=== PATIENT | female | born 1975 | race Caucasian/White ===

== ENCOUNTER 2016-04-05 21:22 | Emergency (ER) | payer MEDICAID ==
[2016-02-18 02:09] VITALS: BMI 38.5
[~2016-04-05 21:22] MED LIST: ABILIFY15 MG PO; MINIPRESS 5 MG C5 MG PO; PROPRANOLOL HCL20 MG PO; ROBAXIN500 MG PO; SAPHRIS5 MG; TRAZODONE HCL50 MG PO; ULTRAM50 MG PO; VALIUM5 MG PO; XARELTO20 MG PO; ZOLOFT100 MG PO
[2016-04-05 22:03] LABS: BASOPHILS 0.1 % (0.0-2.0); EOSINOPHILS 0.4 % (0-7); HEMATOCRIT 46.4 % (36.0-48.0); IMMATURE GRANULOCYTES 0.3 % (0-5); LYMPHOCYTES 20.5 % (15-50); MCH 31.1 pg (26.0-34.0); MCHC 34.5 g/dL (31.0-37.0); MCV 90.1 fL (80.0-100.0); MEAN PLATELET VOLUME 10.3 fL (7.4-10.4); MONOCYTES 4.7 % (2-11); PLATELET COUNT 253 10x3/uL (130-400); RBC 5.15 10x6/uL (4.00-5.40); RDW 13.9 % (11.5-14.5); WBC 13.8 10x3/uL (4.8-10.8)
[2016-04-05 22:18] LABS: ALBUMIN 3.2 g/dL (3.4-5.0); ALKALINE PHOSPHATASE 65 U/L (46-116); ALT (SGPT) 21 U/L (10-68); BILIRUBIN - TOTAL 0.56 mg/dL (0.2-1.3); CALC OSMOLALITY 272 mosm/kg (275-300); CALCIUM 8.8 mg/dL (8.5-10.1); CARBON DIOXIDE 21.1 mmol/L (21.0-32.0); CHLORIDE - SERUM 104 mmol/L (98-107); CREATININE - SERUM 0.8 mg/dL (0.6-1.3); GLUCOSE 105 mg/dL (74-106); POTASSIUM - SERUM 3.6 mmol/L (3.5-5.1); PROTEIN - SERUM 7.4 g/dL (6.4-8.2); SODIUM 137 mmol/L (136-145); UREA NITROGEN 9 mg/dL (7-18); eGFR NON AFRICAN AMERICAN 85 mL/min (90-120)
[2016-04-05 22:29] LABS: CKMB 0.3 U/L (0.0-3.6); CREATINE KINASE 45 UL (21-215); TROPONIN-I < 0.017 ng/mL (0.000-0.060)
== END 2016-04-05 23:00 | disposition home or self-care (01) ==
LOC: D.ER 21:22
PROVIDERS: Family Medicine
DX: R07.89 Other chest pain (principal); J06.9 Acute upper respiratory infection, unspecified; F41.9 Anxiety disorder, unspecified; F31.9 Bipolar disorder, unspecified; F17.200 Nicotine dependence, unspecified, uncomplicated

== ENCOUNTER 2016-10-15 12:43 | Emergency (ER) | payer MEDICAID ==
[2016-02-18 02:09] VITALS: BMI 38.5
[2016-10-15 13:39] LABS: BASOPHILS 0.3 % (0-2); EOSINOPHILS 1.4 % (0-7); HEMATOCRIT 45.5 % (36.0-48.0); HEMOGLOBIN 15.1 g/dL (12-16); IMMATURE GRANULOCYTES 0.2 % (0-5); LYMPHOCYTES 28.7 % (15-50); MCH 30.2 pg (26.0-34.0); MCHC 33.2 g/dL (31.0-37.0); MONOCYTES 6.7 % (2-11); NEUTROPHILS 62.7 % (40-80); PLATELET COUNT 220 10x3/uL (130-400); RDW 13.5 % (11.5-14.5); WBC 6.5 10x3/uL (4.8-10.8)
[2016-10-15 13:57] LABS: ALBUMIN 3.3 g/dL (3.4-5.0); ALKALINE PHOSPHATASE 65 U/L (46-116); ALT (SGPT) 20 U/L (10-68); BILIRUBIN - TOTAL 0.84 mg/dL (0.2-1.3); CALC OSMOLALITY 276 mosm/kg (275-300); CALCIUM 8.6 mg/dL (8.5-10.1); CARBON DIOXIDE 26.9 mmol/L (21.0-32.0); CHLORIDE - SERUM 105 mmol/L (98-107); CREATININE - SERUM 0.7 mg/dL (0.6-1.3); GLUCOSE 96 mg/dL (74-106); POTASSIUM - SERUM 3.9 mmol/L (3.5-5.1); PROTEIN - SERUM 7.3 g/dL (6.4-8.2); SODIUM 140 mmol/L (136-145); UREA NITROGEN 6 mg/dL (7-18); eGFR NON AFRICAN AMERICAN > 90 mL/min (90-120)
[2016-10-15 14:30] LABS: APPEARANCE CLEAR (CLEAR); BILIRUBIN NEGATIVE (NEGATIVE); COLOR YELLOW (YELLOW); GLUCOSE NEGATIVE (NEGATIVE); KETONE NEGATIVE (NEGATIVE); LEUKOCYTE ESTERASE 1+ (NEGATIVE); NITRITE POSITIVE (NEGATIVE); PROTEIN NEGATIVE (NEGATIVE); UROBILINOGEN NORMAL (NORMAL)
[2016-10-15 14:32] LABS: BACTERIA MODERATE /hpf (NONE SEEN); EPITHELIAL CELLS 0-5 /hpf (0-5); RED CELLS - URINE OCC /hpf (0-5)
== END 2016-10-15 15:20 | disposition home or self-care (01) ==
LOC: D.ER 12:43
PROVIDERS: Nurse Practitioner Family
DX: N39.0 Urinary tract infection, site not specified (principal); R53.1 Weakness; M54.9 Dorsalgia, unspecified; M54.2 Cervicalgia; F41.9 Anxiety disorder, unspecified; F31.89 Other bipolar disorder

== ENCOUNTER 2016-10-24 10:36 | Emergency (ER) | payer MEDICAID ==
[2016-02-18 02:09] VITALS: BMI 38.5
== END 2016-10-24 13:30 | disposition left against medical advice (07) ==
LOC: D.ER 10:36
DX: R51 Headache (principal)

== ENCOUNTER 2016-10-26 01:59 | Emergency (ER) | payer MEDICAID ==
[2016-02-18 02:09] VITALS: BMI 38.5
[2016-10-26 03:00] LABS: BASOPHILS 0.3 % (0-2); EOSINOPHILS 0.8 % (0-7); HEMATOCRIT 44.4 % (36.0-48.0); HEMOGLOBIN 14.9 g/dL (12-16); IMMATURE GRANULOCYTES 0.5 % (0-5); LYMPHOCYTES 24.4 % (15-50); MCH 30.7 pg (26.0-34.0); MCHC 33.6 g/dL (31.0-37.0); MCV 91.5 fL (80.0-100.0); MONOCYTES 7.2 % (2-11); NEUTROPHILS 66.8 % (40-80); RBC 4.85 10x6/uL (4.00-5.40); RDW 13.4 % (11.5-14.5); WBC 7.9 10x3/uL (4.8-10.8)
[2016-10-26 03:03] LABS: PLATELET COUNT 175 10x3/uL (130-400)
[2016-10-26 03:12] LABS: ALBUMIN 3.2 g/dL (3.4-5.0); ALKALINE PHOSPHATASE 64 U/L (46-116); ALT (SGPT) 21 U/L (10-68); BILIRUBIN - TOTAL 0.49 mg/dL (0.2-1.3); CALC OSMOLALITY 276 mosm/kg (275-300); CALCIUM 8.2 mg/dL (8.5-10.1); CHLORIDE - SERUM 106 mmol/L (98-107); CREATININE - SERUM 0.7 mg/dL (0.6-1.3); GLUCOSE 104 mg/dL (74-106); LIPASE 157 U/L (73-393); PROTEIN - SERUM 7.4 g/dL (6.4-8.2); SODIUM 140 mmol/L (136-145); UREA NITROGEN 8 mg/dL (7-18); eGFR NON AFRICAN AMERICAN > 90 mL/min (90-120)
[2016-10-26 03:32] LABS: APPEARANCE CLEAR (CLEAR); BILIRUBIN NEGATIVE (NEGATIVE); COLOR YELLOW (YELLOW); GLUCOSE NEGATIVE (NEGATIVE); KETONE SMALL mg/dL (NEGATIVE); LEUKOCYTE ESTERASE NEGATIVE (NEGATIVE); NITRITE NEGATIVE (NEGATIVE); PROTEIN NEGATIVE (NEGATIVE); UROBILINOGEN NORMAL (NORMAL)
== END 2016-10-26 04:05 | disposition home or self-care (01) ==
LOC: D.ER 01:59
PROVIDERS: Emergency Medicine
DX: K29.00 Acute gastritis without bleeding (principal); E86.0 Dehydration; R10.9 Unspecified abdominal pain; F17.200 Nicotine dependence, unspecified, uncomplicated

== ENCOUNTER 2016-10-28 15:01 | Emergency (ER) | payer MEDICAID ==
[2016-02-18 02:09] VITALS: BMI 38.5
[2016-10-28 15:37] LABS: BASOPHILS 0.4 % (0-2); EOSINOPHILS 0.8 % (0-7); HEMATOCRIT 44.4 % (36.0-48.0); IMMATURE GRANULOCYTES 0.2 % (0-5); LYMPHOCYTES 34.6 % (15-50); MCH 30.6 pg (26.0-34.0); MCHC 33.8 g/dL (31.0-37.0); MCV 90.6 fL (80.0-100.0); MEAN PLATELET VOLUME 11.1 fL (7.4-10.4); MONOCYTES 8.5 % (2-11); NEUTROPHILS 55.5 % (40-80); PLATELET COUNT 192 10x3/uL (130-400); RDW 13.4 % (11.5-14.5)
[2016-10-28 15:57] LABS: ALBUMIN 3.2 g/dL (3.4-5.0); ALKALINE PHOSPHATASE 62 U/L (46-116); ALT (SGPT) 22 U/L (10-68); BILIRUBIN - TOTAL 0.63 mg/dL (0.2-1.3); CALC OSMOLALITY 276 mosm/kg (275-300); CALCIUM 8.6 mg/dL (8.5-10.1); CARBON DIOXIDE 25.5 mmol/L (21.0-32.0); CHLORIDE - SERUM 107 mmol/L (98-107); CREATININE - SERUM 0.7 mg/dL (0.6-1.3); GLUCOSE 108 mg/dL (74-106); POTASSIUM - SERUM 3.4 mmol/L (3.5-5.1); PROTEIN - SERUM 7.5 g/dL (6.4-8.2); SODIUM 140 mmol/L (136-145); UREA NITROGEN 5 mg/dL (7-18); eGFR NON AFRICAN AMERICAN > 90 mL/min (90-120)
[2016-10-28 16:00] LABS: HCG SERUM NEGATIVE (NEGATIVE); UDS - AMPHET NEGATIVE QUAL (NEGATIVE); UDS - BARB NEGATIVE QUAL (NEGATIVE); UDS - BENZO NEGATIVE QUAL (NEGATIVE); UDS - COCAINE NEGATIVE QUAL (NEGATIVE); UDS - METH NEGATIVE QUAL (NEGATIVE); UDS - OPIATE NEGATIVE QUAL (NEGATIVE); UDS - PCP NEGATIVE QUAL (NEGATIVE); UDS - THC NEGATIVE QUAL (NEGATIVE)
== END 2016-10-29 11:19 | disposition short-term general hospital (02) ==
LOC: D.ER 15:01
PROVIDERS: Emergency Medicine
DX: F32.9 Major depressive disorder, single episode, unspecified (principal); T14.91 Suicide attempt; T42.8X2A Poisoning by antiparkinsonism drugs and other central muscle-tone depressants, intentional self-harm, initial encounter; T40.4X2A Poisoning by other synthetic narcotics, intentional self-harm, initial encounter; Y92.89 Other specified places as the place of occurrence of the external cause; Y93.89 Activity, other specified; R45.1 Restlessness and agitation

== ENCOUNTER 2016-11-26 18:18 | Emergency (ER) | payer MEDICAID ==
[2016-02-18 02:09] VITALS: BMI 38.5
[2016-11-26 19:16] LABS: BASOPHILS 0.2 % (0-2); EOSINOPHILS 2.1 % (0-7); HEMATOCRIT 45.8 % (36.0-48.0); HEMOGLOBIN 15.4 g/dL (12-16); IMMATURE GRANULOCYTES 0.2 % (0-5); LYMPHOCYTES 22.8 % (15-50); MCH 30.8 pg (26.0-34.0); MCHC 33.6 g/dL (31.0-37.0); MCV 91.6 fL (80.0-100.0); MEAN PLATELET VOLUME 10.7 fL (7.4-10.4); MONOCYTES 5.6 % (2-11); NEUTROPHILS 69.1 % (40-80); PLATELET COUNT 212 10x3/uL (130-400); RDW 13.4 % (11.5-14.5); WBC 10.4 10x3/uL (4.8-10.8)
[2016-11-26 19:39] LABS: ALBUMIN 3.4 g/dL (3.4-5.0); ANION GAP 14.5 mmol/L (8-16); BILIRUBIN - TOTAL 0.33 mg/dL (0.2-1.3); CALCIUM 9.1 mg/dL (8.5-10.1); CARBON DIOXIDE 24.7 mmol/L (21.0-32.0); CREATININE - SERUM 1.3 mg/dL (0.6-1.3); POTASSIUM - SERUM 4.2 mmol/L (3.5-5.1); PROTEIN - SERUM 7.8 g/dL (6.4-8.2)
[2016-11-26 19:40] LABS: UDS - AMPHET NEGATIVE QUAL (NEGATIVE); UDS - BARB NEGATIVE QUAL (NEGATIVE); UDS - BENZO NEGATIVE QUAL (NEGATIVE); UDS - COCAINE NEGATIVE QUAL (NEGATIVE); UDS - METH NEGATIVE QUAL (NEGATIVE); UDS - OPIATE NEGATIVE QUAL (NEGATIVE); UDS - PCP NEGATIVE QUAL (NEGATIVE); UDS - THC NEGATIVE QUAL (NEGATIVE)
[2016-11-26 19:47] LABS: APPEARANCE HAZY (CLEAR); BILIRUBIN NEGATIVE (NEGATIVE); COLOR YELLOW (YELLOW); GLUCOSE NEGATIVE (NEGATIVE); KETONE NEGATIVE (NEGATIVE); LEUKOCYTE ESTERASE TRACE (NEGATIVE); NITRITE POSITIVE (NEGATIVE); PROTEIN NEGATIVE (NEGATIVE); UROBILINOGEN NORMAL (NORMAL)
[2016-11-26 19:49] LABS: APTT 41.3 SECONDS (22.8-39.4); INR 1.59 (0.85-1.17); PROTIME 18.9 SECONDS (11.6-15.0)
[2016-11-26 19:54] LABS: BACTERIA MANY /hpf (NONE SEEN); EPITHELIAL CELLS 0-5 /hpf (0-5); RED CELLS - URINE OCC /hpf (0-5)
[2016-11-26 19:55] LABS: WHITE CELLS - URINE 0-5 /hpf (0-5)
== END 2016-11-26 20:30 | disposition home or self-care (01) ==
LOC: D.ER 18:18
PROVIDERS: Nurse Practitioner Family
DX: M79.661 Pain in right lower leg (principal); N39.0 Urinary tract infection, site not specified

== ENCOUNTER 2016-12-09 21:45 | Emergency (ER) | payer MEDICAID ==
[2016-02-18 02:09] VITALS: BMI 38.5
== END 2016-12-09 23:26 | disposition home or self-care (01) ==
LOC: D.ER 21:45
DX: L25.9 Unspecified contact dermatitis, unspecified cause (principal); F17.200 Nicotine dependence, unspecified, uncomplicated

== ENCOUNTER 2017-11-26 16:29 | Inpatient (IN) | payer MEDICAID ==
[~2017-11-26] VITALS: Ht 152.4 cm; Wt 84.4 kg
[~2017-11-26 16:29] MED LIST changes: +ASPIRIN81 MG PO; +COREG 3.1253.125 MG PO; +PLAVIX75 MG PO; +PRAVACHOL20 MG PO
[2017-11-26] MEDS ORDERED: TOPROL XL25 MG PO (16:40)
[2017-11-26 17:30] VITALS: BP 133/76
[2017-11-26 17:42] LABS: BASOPHILS 0.1 % (0-2); EOSINOPHILS 0 % (0-7); HEMOGLOBIN 15.4 g/dL (12-16); IMMATURE GRANULOCYTES 0.4 % (0-5); LYMPHOCYTES 5.4 % (15-50); MCHC 34.2 g/dL (31.0-37.0); MCV 87.7 fL (80.0-100.0); MEAN PLATELET VOLUME 10.5 fL (7.4-10.4); NEUTROPHILS 88.1 % (40-80); RBC 5.13 10x6/uL (4.00-5.40); RDW 14.2 % (11.5-14.5); WBC 11.4 10x3/uL (4.8-10.8)
[2017-11-26 17:43] LABS: PLATELET COUNT 143 10x3/uL (130-400)
[2017-11-26 18:00] LABS: ALKALINE PHOSPHATASE 55 U/L (46-116); ALT (SGPT) 24 U/L (10-68); BILIRUBIN - TOTAL 0.96 mg/dL (0.2-1.3); CALC OSMOLALITY 267 mosm/kg (275-300); CALCIUM 8.5 mg/dL (8.5-10.1); CARBON DIOXIDE 23.4 mmol/L (21.0-32.0); CHLORIDE - SERUM 99 mmol/L (98-107); CREATININE - SERUM 1.2 mg/dL (0.6-1.3); GLUCOSE 120 mg/dL (74-106); PROTEIN - SERUM 8.4 g/dL (6.4-8.2); SODIUM 134 mmol/L (136-145); UREA NITROGEN 11 mg/dL (7-18); eGFR NON AFRICAN AMERICAN 53 mL/min (90-120)
[2017-11-26 18:25] LABS: TROPONIN-I < 0.017 ng/mL (0.000-0.060)
[2017-11-26 19:30] VITALS: BP 113/76
[2017-11-26 20:30] VITALS: BP 109/64
[2017-11-26 21:30] VITALS: BP 113/73
[2017-11-26 22:30] VITALS: BP 99/64
[2017-11-26 23:30] VITALS: BP 107/69
[2017-11-27 00:30] VITALS: BP 101/47
[2017-11-27 02:19] VITALS: BP 78/55; BMI 36.4
[2017-11-27 03:35] LABS: UDS - AMPHET POSITIVE QUAL (NEGATIVE); UDS - BARB NEGATIVE QUAL (NEGATIVE); UDS - BENZO NEGATIVE QUAL (NEGATIVE); UDS - COCAINE NEGATIVE QUAL (NEGATIVE); UDS - OPIATE NEGATIVE QUAL (NEGATIVE); UDS - PCP NEGATIVE QUAL (NEGATIVE); UDS - THC NEGATIVE QUAL (NEGATIVE)
[2017-11-27 03:41] LABS: APPEARANCE HAZY (CLEAR); COLOR DK YELLOW (YELLOW)
[2017-11-27 03:42] LABS: BACTERIA MODERATE /hpf (NONE SEEN); BILIRUBIN NEGATIVE (NEGATIVE); EPITHELIAL CELLS RARE /hpf (0-5); GLUCOSE NEGATIVE (NEGATIVE); KETONE MODERATE mg/dL (NEGATIVE); NITRITE POSITIVE (NEGATIVE); PROTEIN 1+ mg/dL (NEGATIVE); RED CELLS - URINE 0-5 /hpf (0-5); SPECIFIC GRAVITY 1.015 (1.005-1.020); UROBILINOGEN NORMAL (NORMAL); WHITE CELLS - URINE 0-5 /hpf (0-5)
[2017-11-27 07:40] VITALS: BP 98/48
[2017-11-27 12:36] VITALS: BP 99/69
[2017-11-27 13:24] VITALS: Ht 152.4 cm; Wt 84.4 kg
[2017-11-27 16:02] VITALS: BP 97/55
[2017-11-27 20:00] VITALS: BP 115/63
[2017-11-28 04:00] VITALS: BP 120/60
[2017-11-28 08:17] LABS: HEPATITIS C ANTIBODY <0.1 (0.0-0.9)
[2017-11-28 09:28] VITALS: BP 104/55
[2017-11-28 10:57] LABS: BASOPHILS 0.1 % (0-2); EOSINOPHILS 0.1 % (0-7); HEMATOCRIT 36.4 % (36.0-48.0); HEMOGLOBIN 12.4 g/dL (12-16); IMMATURE GRANULOCYTES 0.2 % (0-5); LYMPHOCYTES 9.6 % (15-50); MCHC 34.1 g/dL (31.0-37.0); MCV 88.1 fL (80.0-100.0); MEAN PLATELET VOLUME 11.3 fL (7.4-10.4); MONOCYTES 6.3 % (2-11); NEUTROPHILS 83.7 % (40-80); RBC 4.13 10x6/uL (4.00-5.40); RDW 14.6 % (11.5-14.5); WBC 10.6 10x3/uL (4.8-10.8)
[2017-11-28 11:02] LABS: PLATELET COUNT 177 10x3/uL (130-400)
[2017-11-28 11:10] LABS: ANION GAP 16.4 mmol/L (8-16); CALCIUM 7.7 mg/dL (8.5-10.1); CARBON DIOXIDE 21.5 mmol/L (21.0-32.0); CREATININE - SERUM 0.9 mg/dL (0.6-1.3); POTASSIUM - SERUM 3.9 mmol/L (3.5-5.1)
[2017-11-28 12:58] VITALS: BP 99/49
[2017-11-28 20:00] VITALS: BP 95/57
[2017-11-29 04:00] VITALS: BP 101/50
[2017-11-29 06:48] LABS: BASOPHILS 0.2 % (0-2); EOSINOPHILS 2.7 % (0-7); HEMOGLOBIN 12.8 g/dL (12-16); IMMATURE GRANULOCYTES 0.2 % (0-5); LYMPHOCYTES 24.8 % (15-50); MCH 29.9 pg (26.0-34.0); MCHC 33.7 g/dL (31.0-37.0); MCV 88.8 fL (80.0-100.0); MEAN PLATELET VOLUME 11.4 fL (7.4-10.4); MONOCYTES 7.8 % (2-11); NEUTROPHILS 64.3 % (40-80); PLATELET COUNT 171 10x3/uL (130-400); RBC 4.28 10x6/uL (4.00-5.40); RDW 14.9 % (11.5-14.5)
[2017-11-29 06:51] LABS: WBC 5.9 10x3/uL (4.8-10.8)
[2017-11-29 07:04] LABS: CALC OSMOLALITY 278 mosm/kg (275-300); CALCIUM 7.7 mg/dL (8.5-10.1); CARBON DIOXIDE 23.1 mmol/L (21.0-32.0); CHLORIDE - SERUM 106 mmol/L (98-107); CREATININE - SERUM 0.7 mg/dL (0.6-1.3); GLUCOSE 93 mg/dL (74-106); POTASSIUM - SERUM 3.8 mmol/L (3.5-5.1); SODIUM 139 mmol/L (136-145); eGFR NON AFRICAN AMERICAN > 90 mL/min (90-120)
[2017-11-29 07:17] LABS: UREA NITROGEN 16 mg/dL (7-18)
[2017-11-29 08:20] VITALS: BP 91/51
[2017-11-29] MEDS ORDERED: LEVAQUIN750 MG PO (10:09)
[2017-11-29 11:36] VITALS: BP 92/55
== END 2017-11-29 15:10 | disposition home or self-care (01) | DRG 190 ==
LOC: D.ER 16:29 → D.M2 11-27 01:33
PROVIDERS: Family Medicine; Internal Medicine Nephrology
DX: J44.0 Chronic obstructive pulmonary disease with (acute) lower respiratory infection (principal); J18.9 Pneumonia, unspecified organism; N39.0 Urinary tract infection, site not specified; F17.213 Nicotine dependence, cigarettes, with withdrawal; J44.1 Chronic obstructive pulmonary disease with (acute) exacerbation; I25.10 Atherosclerotic heart disease of native coronary artery without angina pectoris; Z95.5 Presence of coronary angioplasty implant and graft; F15.10 Other stimulant abuse, uncomplicated

== ENCOUNTER 2017-12-18 20:54 | Emergency (ER) | payer MEDICAID ==
[~2017-12-18] VITALS: Ht 152.4 cm; Wt 77.3 kg
[~2017-12-18 20:54] MED LIST changes: +LEVAQUIN750 MG PO; +TOPROL XL25 MG PO
[2017-12-18 21:01] VITALS: Ht 152.4 cm; Wt 77.3 kg
[2017-12-18 22:12] VITALS: BP 156/72
[2017-12-18] MEDS ORDERED: VALIUM5 MG PO (22:50)
[2017-12-18] MEDS ORDERED: PROZAC20 MG PO (22:50)
== END 2017-12-18 22:12 | disposition home or self-care (01) ==
LOC: D.ER 20:54
DX: F41.9 Anxiety disorder, unspecified (principal); F32.9 Major depressive disorder, single episode, unspecified; Z76.0 Encounter for issue of repeat prescription; Z86.59 Personal history of other mental and behavioral disorders; F17.200 Nicotine dependence, unspecified, uncomplicated

== ENCOUNTER 2018-02-22 22:47 | Emergency (ER) | payer MEDICAID ==
[~2018-02-22] VITALS: Ht 152.4 cm; Wt 75.0 kg
[~2018-02-22 22:47] MED LIST changes: +PROZAC20 MG PO
[2018-02-22 22:54] VITALS: Ht 152.4 cm; Wt 75.0 kg
[2018-02-22 23:19] LABS: BASOPHILS 0.1 % (0-2); HEMATOCRIT 42.9 % (36.0-48.0); HEMOGLOBIN 14.8 g/dL (12-16); IMMATURE GRANULOCYTES 0.3 % (0-5); LYMPHOCYTES 17.2 % (15-50); MCH 31.2 pg (26.0-34.0); MCHC 34.5 g/dL (31.0-37.0); MCV 90.3 fL (80.0-100.0); MONOCYTES 5.1 % (2-11); NEUTROPHILS 76.3 % (40-80); RBC 4.75 10x6/uL (4.00-5.40); RDW 13.6 % (11.5-14.5); WBC 16.3 10x3/uL (4.8-10.8)
[2018-02-22 23:24] LABS: PLATELET COUNT 272 10x3/uL (130-400)
[2018-02-22 23:36] LABS: APPEARANCE CLEAR (CLEAR); BILIRUBIN NEGATIVE (NEGATIVE); COLOR YELLOW (YELLOW); GLUCOSE NEGATIVE (NEGATIVE); KETONE NEGATIVE (NEGATIVE); NITRITE NEGATIVE (NEGATIVE); PROTEIN NEGATIVE (NEGATIVE); UROBILINOGEN NORMAL (NORMAL)
[2018-02-22 23:36] LABS: ALBUMIN 3.1 g/dL (3.4-5.0); ALKALINE PHOSPHATASE 62 U/L (46-116); ALT (SGPT) 14 U/L (10-68); BILIRUBIN - TOTAL 0.38 mg/dL (0.2-1.3); CALC OSMOLALITY 278 mosm/kg (275-300); CALCIUM 8.9 mg/dL (8.5-10.1); CARBON DIOXIDE 21.4 mmol/L (21.0-32.0); CHLORIDE - SERUM 105 mmol/L (98-107); CREATININE - SERUM 0.9 mg/dL (0.6-1.3); GLUCOSE 90 mg/dL (74-106); POTASSIUM - SERUM 3.6 mmol/L (3.5-5.1); PROTEIN - SERUM 7.9 g/dL (6.4-8.2); SODIUM 139 mmol/L (136-145); UREA NITROGEN 15 mg/dL (7-18); eGFR NON AFRICAN AMERICAN 73 mL/min (90-120)
[2018-02-22 23:44] LABS: UDS - AMPHET NEGATIVE QUAL (NEGATIVE); UDS - BARB NEGATIVE QUAL (NEGATIVE); UDS - BENZO NEGATIVE QUAL (NEGATIVE); UDS - COCAINE NEGATIVE QUAL (NEGATIVE); UDS - OPIATE NEGATIVE QUAL (NEGATIVE); UDS - PCP NEGATIVE QUAL (NEGATIVE); UDS - THC NEGATIVE QUAL (NEGATIVE)
[2018-02-22 23:46] LABS: LIPASE 228 U/L (73-393); PRO BNP 192 pg/mL (0-125); TROPONIN-I < 0.017 ng/mL (0.000-0.060)
[2018-02-23 01:24] VITALS: BP 105/71
== END 2018-02-23 01:26 | disposition home or self-care (01) ==
LOC: D.ER 22:47
PROVIDERS: Family Medicine
DX: R07.9 Chest pain, unspecified (principal)

== ENCOUNTER 2018-04-18 12:09 | Observation (INO) | payer MEDICAID ==
[2018-04-18] VITALS (13 sets, daily range): BP systolic 108–133; BP diastolic 64–85; BMI 38.3
[~2018-04-18] VITALS: Ht 152.4 cm; Wt 89.2 kg
[2018-04-18 12:25] LABS: BASOPHILS 0.3 % (0-2); EOSINOPHILS 1.4 % (0-7); HEMATOCRIT 45.1 % (36.0-48.0); HEMOGLOBIN 15.5 g/dL (12-16); IMMATURE GRANULOCYTES 0.3 % (0-5); LYMPHOCYTES 20.6 % (15-50); MCH 30.9 pg (26.0-34.0); MCHC 34.4 g/dL (31.0-37.0); MEAN PLATELET VOLUME 10.8 fL (7.4-10.4); MONOCYTES 4.3 % (2-11); NEUTROPHILS 73.1 % (40-80); RBC 5.01 10x6/uL (4.00-5.40); RDW 13.4 % (11.5-14.5); WBC 7.6 10x3/uL (4.8-10.8)
[2018-04-18 12:27] LABS: PLATELET COUNT 181 10x3/uL (130-400)
[2018-04-18 12:35] LABS: UDS - AMPHET NEGATIVE QUAL (NEGATIVE); UDS - BARB NEGATIVE QUAL (NEGATIVE); UDS - BENZO NEGATIVE QUAL (NEGATIVE); UDS - COCAINE NEGATIVE QUAL (NEGATIVE); UDS - OPIATE NEGATIVE QUAL (NEGATIVE); UDS - PCP NEGATIVE QUAL (NEGATIVE); UDS - THC NEGATIVE QUAL (NEGATIVE)
[2018-04-18 12:40] LABS: APPEARANCE CLEAR (CLEAR); COLOR YELLOW (YELLOW); GLUCOSE NEGATIVE (NEGATIVE); NITRITE NEGATIVE (NEGATIVE); PROTEIN 2+ mg/dL (NEGATIVE); SPECIFIC GRAVITY 1.015 (1.005-1.020)
[2018-04-18 12:41] LABS: BILIRUBIN NEGATIVE (NEGATIVE); EPITHELIAL CELLS 0-5 /hpf (0-5); KETONE NEGATIVE (NEGATIVE); RED CELLS - URINE RARE /hpf (0-5); UROBILINOGEN NORMAL (NORMAL); WHITE CELLS - URINE NSEEN /hpf (0-5)
[2018-04-18 12:44] LABS: ALBUMIN 3.3 g/dL (3.4-5.0); ALKALINE PHOSPHATASE 57 U/L (46-116); ALT (SGPT) 21 U/L (10-68); BILIRUBIN - TOTAL 0.69 mg/dL (0.2-1.3); CALC OSMOLALITY 278 mosm/kg (275-300); CALCIUM 8.2 mg/dL (8.5-10.1); CARBON DIOXIDE 23.1 mmol/L (21.0-32.0); CHLORIDE - SERUM 105 mmol/L (98-107); CREATININE - SERUM 0.8 mg/dL (0.6-1.3); GLUCOSE 102 mg/dL (74-106); POTASSIUM - SERUM 4.8 mmol/L (3.5-5.1); PROTEIN - SERUM 7.6 g/dL (6.4-8.2); SODIUM 139 mmol/L (136-145); UREA NITROGEN 14 mg/dL (7-18); eGFR NON AFRICAN AMERICAN 84 mL/min (90-120)
[2018-04-19] VITALS (19 sets, daily range): BP systolic 106–130; BP diastolic 59–84; Ht 152.4 cm; Wt 89.2 kg
[2018-04-19 04:13] LABS: BASOPHILS 0.3 % (0-2); EOSINOPHILS 1.5 % (0-7); HEMATOCRIT 41.9 % (36.0-48.0); IMMATURE GRANULOCYTES 0.3 % (0-5); LYMPHOCYTES 36.1 % (15-50); MCH 30.2 pg (26.0-34.0); MCHC 33.4 g/dL (31.0-37.0); MCV 90.3 fL (80.0-100.0); MEAN PLATELET VOLUME 10.6 fL (7.4-10.4); MONOCYTES 6.8 % (2-11); PLATELET COUNT 208 10x3/uL (130-400); RBC 4.64 10x6/uL (4.00-5.40); RDW 13.4 % (11.5-14.5); WBC 6.5 10x3/uL (4.8-10.8)
[2018-04-19 04:39] LABS: ALBUMIN 2.9 g/dL (3.4-5.0); ALKALINE PHOSPHATASE 51 U/L (46-116); ALT (SGPT) 16 U/L (10-68); BILIRUBIN - TOTAL 0.85 mg/dL (0.2-1.3); CALC OSMOLALITY 277 mosm/kg (275-300); CARBON DIOXIDE 24.3 mmol/L (21.0-32.0); CHLORIDE - SERUM 107 mmol/L (98-107); CREATININE - SERUM 0.6 mg/dL (0.6-1.3); GLUCOSE 95 mg/dL (74-106); POTASSIUM - SERUM 3.5 mmol/L (3.5-5.1); PROTEIN - SERUM 6.8 g/dL (6.4-8.2); SODIUM 139 mmol/L (136-145); UREA NITROGEN 13 mg/dL (7-18); eGFR NON AFRICAN AMERICAN > 90 mL/min (90-120)
[2018-04-20 04:31] LABS: BASOPHILS 0.5 % (0-2); EOSINOPHILS 1.7 % (0-7); HEMOGLOBIN 13.5 g/dL (12-16); IMMATURE GRANULOCYTES 0.2 % (0-5); LYMPHOCYTES 47.8 % (15-50); MCH 29.7 pg (26.0-34.0); MCHC 32.9 g/dL (31.0-37.0); MCV 90.3 fL (80.0-100.0); MEAN PLATELET VOLUME 10.5 fL (7.4-10.4); MONOCYTES 7.3 % (2-11); NEUTROPHILS 42.5 % (40-80); PLATELET COUNT 212 10x3/uL (130-400); RBC 4.54 10x6/uL (4.00-5.40); RDW 13.3 % (11.5-14.5); WBC 5.8 10x3/uL (4.8-10.8)
[2018-04-20 04:57] LABS: ALBUMIN 2.9 g/dL (3.4-5.0); ALKALINE PHOSPHATASE 51 U/L (46-116); ALT (SGPT) 14 U/L (10-68); BILIRUBIN - TOTAL 0.52 mg/dL (0.2-1.3); CALC OSMOLALITY 279 mosm/kg (275-300); CALCIUM 7.8 mg/dL (8.5-10.1); CARBON DIOXIDE 22.2 mmol/L (21.0-32.0); CHLORIDE - SERUM 107 mmol/L (98-107); CREATININE - SERUM 0.7 mg/dL (0.6-1.3); GLUCOSE 97 mg/dL (74-106); POTASSIUM - SERUM 3.8 mmol/L (3.5-5.1); PROTEIN - SERUM 6.6 g/dL (6.4-8.2); SODIUM 139 mmol/L (136-145); eGFR NON AFRICAN AMERICAN > 90 mL/min (90-120)
[2018-04-20 04:58] LABS: UREA NITROGEN 18 mg/dL (7-18)
[2018-04-20 07:00] VITALS: BP 124/70
[2018-04-20 08:00] VITALS: BP 125/81
[2018-04-20 09:00] VITALS: BP 110/66
--- NOTE | 2018-04-20 15:32 | CN ---
PATIENT NAME:BEBO CHRISTENSEN MEDICAL RECORD: [id number] : 79 LOCATION:[facility] ADMIT DATE: 04/18/18 ACCOUNT: [id number] CONSULTING PHYSICIAN: HEATHER FLAHERTY MD REFERRING PHYSICIAN: YANELI GARCIA MD DATE OF CONSULTATION: 04/19/2018 PSYCHIATRIC CONSULTATION IDENTIFYING DATA: The patient is 42 years old and she is admitted to the hospital on a voluntary basis because of an overdose. She apparently was arguing with her daughter and then, intentionally, took a handful of her medications. Her urine drug screen is negative for any illicit substances and she apparently took amoxapine, Latuda, and trazodone, but now has no cardiac conduction delays at this point after the overdose. She continues to endorse numerous neurovegetative depressive symptoms, is quite tearful; and even though she says she no longer wants to hurt herself, she pauses for an uncomfortable amount of time while she is thinking and then gives me an answer that is very unconvincing, even though it was negative. When asked about the stressors that precipitated this, she goes into a large amount of detail about her relationships with her family and the fact that she believes they are bullying her. The examples of this are not particularly convincing and I am concerned that it is probably or possibly delusional. MENTAL STATUS EXAMINATION: The patient is awake; alert; and oriented to person, place, time, and situation. Her mood is depressed. Her affect is constricted. Thought processes are circumstantial. Memory, concentration, and abstraction abilities are mildly impaired and she denies any intent to harm herself or others. She denies psychotic symptoms. ASSESSMENT: 1. Status post polysubstance overdose. 2. Bipolar disorder, depressed. PLAN: At this time, I am recommending inpatient psychiatric hospitalization once the patient is medically cleared. She is acutely suicidal, has a history of mental illness and psychiatric hospitalizations as well as a history of overdose. She still is showing a high degree of emotional distress with a low degree of specificity. There is the likelihood that what she is referring to is delusional and I am not comfortable with her just following up with an outpatient appointment in a few weeks. I do recommend inpatient hospitalization and feel strongly enough about it that if she changes her mind and decides she does not want to go, she should be committed against her will. I do think she meets current commitment criteria based on the evaluation and description above. TRANSINT:[id number] Voice Confirmation ID: [id number] DOCUMENT ID: [id number] CONSULT REPORT [id number] BEBO CHRISTENSEN PETER MD at 1532 CC: [id number] DICTATION DATE: 04/19/18 165 FINAL INSPECTOR AND TESTER: 04/19/18 1806 DIS IN 04/20/18 [id number] [place] [address]
--- NOTE | 2018-04-20 17:16 | MORECARE ---
CASE MANAGEMENT DISCHARGE SUMMARY PATIENT: BEBO CHRISTENSEN UNIT: [id number] ADM DATE: 04/18/18 AGE: 42 : [birth year] SEX: F ROOM/BED: D.2313 AUTHOR: SEAN LEWIS PHYSICIAN: REFERRING PHYSICIAN: YANELI GARCIA MD DATE OF SERVICE: 04/20/18 Discharge Plan Patient Name: BEBO CHRISTENSEN Facility: [facility]:[place] : 1975 Planned Disposition: Anticipated Discharge Date: Discharge Date: 04/20/2018 Expected LOS: Initial Reviewer: [email or web address] Initial Review Date: 04/18/2018 Generated: 04/20/18 6:15 pm External Providers External Provider: [facility] Next Contact Date: Service Request Date: Service Type: Resolution: Reviewer: Comments: Patient Name: BEBO CHRISTENSEN Page [id number] at 1716 All edits/amendments must be made on the electronic document DICTATION DATE: 04/20/181714 CAMP ADVISOR: MARY ANN 04/20/181714 RPT#: [id number] DC DATE:04/20/18 STATUS: DIS IN [facility] [address] [place] [address] END OF REPORT
--- NOTE | 2018-04-20 17:25 | MORECARE ---
CASE MANAGEMENT DISCHARGE SUMMARY PATIENT: BEBO CHRISTENSEN UNIT: [id number] ADM DATE: 04/18/18 AGE: 42 : [birth year] SEX: F ROOM/BED: D.2313 AUTHOR: SEAN LEWIS PHYSICIAN: REFERRING PHYSICIAN: YANELI GARCIA MD DATE OF SERVICE: 04/20/18 Discharge Plan Patient Name: BEBO CHRISTENSEN Facility: [facility]:[place] : 1975 Planned Disposition: Anticipated Discharge Date: Discharge Date: 04/20/2018 Expected LOS: Initial Reviewer: [email or web address] Initial Review Date: 04/18/2018 Generated: 04/20/18 6:24 pm Comments DCP- Discharge Planning Updated by [email or web address]: Chela Hayes on 04/20/18 4:[address] Late Entry 04/20/18 @ 0830 CM was notified that patient is stable for transfer to inpatient psychiatric facility. CM spoke with patient she agrees to transfer to psychiatric facility. CM contacted transfer center and faxed over records.CM will continue to follow and assist as needed with discharge planning / needs. Late Entry 04/20/18 @ 1130 CM notified that patient has been accepted to [facility]. Awaiting on ambulance transfer. CM will continue to follow and assist as needed with discharge planning / needs. Last DP export: 04/20/18 4:15 pm Patient Name: BEBO CHRISTENSEN Page [id number] at 3324 All edits/amendments must be made on the electronic document DICTATION DATE: 04/20/181723 BANBURY MIXER OPERATOR: MARY ANN 04/20/181723 RPT#: [id number] DC DATE:04/20/18 STATUS: DIS IN [facility] [address] [place] [address] END OF REPORT
--- NOTE | 2018-04-21 10:16 | MORECARE ---
CASE MANAGEMENT DISCHARGE SUMMARY PATIENT: BEBO CHRISTENSEN UNIT: [id number] ADM DATE: 04/18/18 AGE: 42 : [birth year] SEX: F ROOM/BED: D.2313 AUTHOR: SEAN LEWIS PHYSICIAN: REFERRING PHYSICIAN: YANELI GARCIA MD DATE OF SERVICE: 04/21/18 Discharge Plan Patient Name: BEBO CHRISTENSEN Facility: [facility]:[place] : 1975 Planned Disposition: Anticipated Discharge Date: Discharge Date: 04/20/2018 Expected LOS: Initial Reviewer: [email or web address] Initial Review Date: 04/18/2018 Generated: 04/21/18 11:16 am Comments DCP- Discharge Planning Updated by [email or web address]: Chela Hayes on 04/20/18 4:[address] Late Entry 04/20/18 @ 0830 CM was notified that patient is stable for transfer to inpatient psychiatric facility. CM spoke with patient she agrees to transfer to psychiatric facility. CM contacted transfer center and faxed over records.CM will continue to follow and assist as needed with discharge planning / needs. Late Entry 04/20/18 @ 1130 CM notified that patient has been accepted to [facility]. Awaiting on ambulance transfer. CM will continue to follow and assist as needed with discharge planning / needs. Last DP export: 04/20/18 4:25 pm Patient Name: BEBO CHRISTENSEN Page 50663 at 1016 All edits/amendments must be made on the electronic document DICTATION DATE: 04/21/18 1016 UNDERCOVER OPERATOR: MARY ANN 04/21/18 1016 RPT#: [id number] DC DATE:04/20/18 STATUS: DIS IN [facility] [address] [place] [address] END OF REPORT
== END 2018-04-20 13:36 ==
LOC: D.ER 12:09 → D.ICU 14:35 → OBSVTIME 14:35 → D.EDHOLD 14:35 → D.ICU 15:39
PROVIDERS: Family Medicine; ADMIT Internal Medicine Nephrology
DX: T43.212A Poisoning by selective serotonin and norepinephrine reuptake inhibitors, intentional self-harm, initial encounter (principal); T43.012A Poisoning by tricyclic antidepressants, intentional self-harm, initial encounter; F31.9 Bipolar disorder, unspecified; R45.851 Suicidal ideations

== ENCOUNTER → 2018-08-24 17:29 | Outpatient (CLI) | payer MEDICAID ==
[2018-04-19 09:59] VITALS: BMI 38.1
[2018-08-24 18:31] LABS: CHOL - HDL RATIO 4.9 ratio (2.3-4.1)
== END | disposition home or self-care (01) ==
LOC: D.LABREF 17:29
PROVIDERS: ATTEND Nurse Practitioner Adult Health
DX: I25.10 Atherosclerotic heart disease of native coronary artery without angina pectoris (principal); I10 Essential (primary) hypertension

== ENCOUNTER 2018-09-16 23:11 | Emergency (ER) | payer OTHER ==
[~2018-09-16] VITALS: Ht 152.4 cm; Wt 97.3 kg
[2018-09-16 23:20] VITALS: Ht 152.4 cm; Wt 97.3 kg
[2018-09-16] MEDS ORDERED: NEURONTIN 400400 MG PO (23:24)
[2018-09-16] MEDS ORDERED: LYRICA75 MG PO (23:24)
[2018-09-17 00:45] VITALS: BP 134/75
== END 2018-09-17 00:45 | disposition home or self-care (01) ==
LOC: D.ER 23:11
DX: M54.5 Low back pain (principal); M62.838 Other muscle spasm

== ENCOUNTER 2018-10-20 00:52 | Emergency (ER) | payer OTHER ==
[~2018-10-20] VITALS: Ht 152.4 cm; Wt 97.3 kg
[~2018-10-20 00:52] MED LIST changes: +LYRICA75 MG PO; +NEURONTIN 400400 MG PO
[2018-10-20 01:10] VITALS: Ht 152.4 cm; Wt 97.3 kg
[2018-10-20] MEDS ORDERED: FLAGYL500 MG PO (01:56)
[2018-10-20 02:17] LABS: APPEARANCE HAZY (CLEAR); BILIRUBIN NEGATIVE (NEGATIVE); COLOR YELLOW (YELLOW); GLUCOSE NEGATIVE (NEGATIVE); KETONE NEGATIVE (NEGATIVE); NITRITE NEGATIVE (NEGATIVE); PROTEIN 1+ mg/dL (NEGATIVE); SPECIFIC GRAVITY 1.005 (1.005-1.020); UROBILINOGEN NORMAL (NORMAL)
[2018-10-20 02:18] LABS: AMORPHOUS SEDIMENT NONE SEEN /lpf (NONE SEEN); BACTERIA MANY /hpf (NONE SEEN); EPITHELIAL CELL CAST NONE SEEN /lpf (NONE SEEN); EPITHELIAL CELLS 0-5 /hpf (0-5); GRANULAR CAST NONE SEEN /lpf (NONE SEEN); HYALINE CAST NONE SEEN /lpf (NONE SEEN); MUCUS <1+ /lpf (NONE SEEN); RED CELL CAST NONE SEEN /lpf (NONE SEEN); RED CELLS - URINE 0-5 /hpf (0-5); SPERMATOZOA NONE SEEN /hpf (NONE SEEN); WAXY CAST NONE SEEN /lpf (NONE SEEN); YEAST NONE SEEN /hpf (NONE SEEN)
[2018-10-20 02:52] VITALS: BP 130/82
== END 2018-10-20 02:35 | disposition home or self-care (01) ==
LOC: D.ER 00:52
PROVIDERS: Family Medicine
DX: N89.8 Other specified noninflammatory disorders of vagina (principal); N76.0 Acute vaginitis; B96.89 Other specified bacterial agents as the cause of diseases classified elsewhere

== ENCOUNTER → 2019-02-28 16:52 | Outpatient (CLI) | payer OTHER ==
[2018-10-20 01:10] VITALS: BMI 41.8
[~2019-02-28 16:52] MED LIST changes: +FLAGYL500 MG PO
[2019-02-28 18:47] LABS: CHOL - HDL RATIO 4.5 ratio (2.3-4.1); LDL-HDL RATIO 2.9 ratio (1.5-3.5)
== END | disposition home or self-care (01) ==
LOC: D.LABREF 16:52
PROVIDERS: ATTEND Internal Medicine Cardiovascular Disease
DX: I25.10 Atherosclerotic heart disease of native coronary artery without angina pectoris (principal)

== ENCOUNTER 2019-03-02 23:06 | Emergency (ER) | payer OTHER ==
[~2019-03-02] VITALS: Ht 152.4 cm; Wt 75.0 kg
[2019-03-02 23:15] VITALS: Ht 152.4 cm; Wt 75.0 kg
[2019-03-02 23:33] VITALS: BP 127/72
[2019-03-02 23:38] LABS: HEMATOCRIT 49.4 % (36.0-48.0); HEMOGLOBIN 16.1 g/dL (12-16); LYMPHOCYTES 15.7 % (15-50); MCH 29.2 pg (26.0-34.0); MCHC 32.6 g/dL (31.0-37.0); MCV 89.5 fL (80.0-100.0); MEAN PLATELET VOLUME 10.2 fL (7.4-10.4); NEUTROPHILS 79.5 % (40-80); RBC 5.52 10x6/uL (4.00-5.40); RDW 12.6 % (11.5-14.5); WBC 18.3 10x3/uL (4.8-10.8)
[2019-03-02 23:41] LABS: PLATELET COUNT 274 10x3/uL (130-400)
[2019-03-02 23:44] LABS: CALC OSMOLALITY 280 mosm/kg (275-300); CALCIUM 9.1 mg/dL (8.5-10.1); CHLORIDE - SERUM 102 mmol/L (98-107); GLUCOSE 98 mg/dL (74-106); POTASSIUM - SERUM 4.3 mmol/L (3.5-5.1); SODIUM 140 mmol/L (136-145); UREA NITROGEN 17 mg/dL (7-18); eGFR NON AFRICAN AMERICAN 65 mL/min (90-120)
[2019-03-02 23:47] LABS: INR 0.9 (0.85-1.17); PROTIME 11.7 SECONDS (11.6-15.0)
[2019-03-03 00:01] LABS: ALBUMIN 3.6 g/dL (3.4-5.0); ALKALINE PHOSPHATASE 69 U/L (46-116); ALT (SGPT) 22 U/L (10-68); AMYLASE - SERUM 59 U/L (25-115); BILIRUBIN - TOTAL 0.32 mg/dL (0.2-1.3); CKMB 0.3 U/L (0.0-3.6); CREATINE KINASE 66 UL (21-215); LIPASE 170 U/L (73-393); MAGNESIUM - SERUM 1.8 mg/dL (1.8-2.4); TROPONIN-I < 0.017 ng/mL (0.000-0.060)
== END 2019-03-03 00:58 | disposition left against medical advice (07) ==
LOC: OBSVTIME → D.ER 23:06 → D.M2 03-03 00:17 → OBSVTIME 03-03 00:17 → D.ER 03-03 00:17 → D.SDCHOLD 03-03 01:44 → D.M2 03-03 01:44
PROVIDERS: Family Medicine
DX: R07.9 Chest pain, unspecified (principal); K21.9 Gastro-esophageal reflux disease without esophagitis; F17.213 Nicotine dependence, cigarettes, with withdrawal; I10 Essential (primary) hypertension

== ENCOUNTER 2019-06-04 18:38 | Emergency (ER) | payer OTHER ==
[~2019-06-04] VITALS: Ht 152.4 cm; Wt 100.0 kg
[2019-06-04 18:46] VITALS: Ht 152.4 cm; Wt 100.0 kg
[2019-06-04] MEDS ORDERED: ELAVIL25 MG PO (18:50)
[2019-06-04] MEDS ORDERED: BUSPAR5 MG PO (18:50)
[2019-06-04] MEDS ORDERED: LIPITOR80 MG PO (18:51)
[2019-06-04] MEDS ORDERED: LAMICTAL25 MG PO (18:51)
[2019-06-04] MEDS ORDERED: DOXEPIN HCL10 MG PO (18:51)
[2019-06-04] MEDS ORDERED: BAYER CHEWABLE81 MG PO (18:52)
[2019-06-04] MEDS ORDERED: PROTONIX40 MG PO (18:52)
[2019-06-04 19:06] LABS: BASOPHILS 0.1 % (0-2); EOSINOPHILS 0.6 % (0-7); HEMATOCRIT 46.4 % (36.0-48.0); HEMOGLOBIN 15.4 g/dL (12-16); IMMATURE GRANULOCYTES 0.5 % (0-5); LYMPHOCYTES 20.3 % (15-50); MCH 30.6 pg (26.0-34.0); MCHC 33.2 g/dL (31.0-37.0); MCV 92.1 fL (80.0-100.0); MEAN PLATELET VOLUME 9.5 fL (7.4-10.4); MONOCYTES 5.9 % (2-11); NEUTROPHILS 72.6 % (40-80); PLATELET COUNT 295 10x3/uL (130-400); RBC 5.04 10x6/uL (4.00-5.40); RDW 13.8 % (11.5-14.5); WBC 13.7 10x3/uL (4.8-10.8)
[2019-06-04 19:13] LABS: CALC OSMOLALITY 277 mosm/kg (275-300); CALCIUM 8.6 mg/dL (8.5-10.1); CARBON DIOXIDE 25.3 mmol/L (21.0-32.0); CHLORIDE - SERUM 102 mmol/L (98-107); CREATININE - SERUM 0.8 mg/dL (0.6-1.3); GLUCOSE 103 mg/dL (74-106); SODIUM 138 mmol/L (136-145); UREA NITROGEN 17 mg/dL (7-18); eGFR NON AFRICAN AMERICAN 84 mL/min (90-120)
[2019-06-04 19:19] LABS: ALBUMIN 3.3 g/dL (3.4-5.0); ALKALINE PHOSPHATASE 75 U/L (30-120); ALT (SGPT) 29 U/L (10-68); BILIRUBIN - TOTAL 0.57 mg/dL (0.2-1.3); PROTEIN - SERUM 7.6 g/dL (6.4-8.2)
[2019-06-04 19:31] LABS: NITRITE POSITIVE (NEGATIVE)
[2019-06-04 19:32] LABS: BILIRUBIN NEGATIVE (NEGATIVE); GLUCOSE NEGATIVE (NEGATIVE); KETONE NEGATIVE (NEGATIVE); UROBILINOGEN NORMAL (NORMAL)
[2019-06-04] MEDS ORDERED: TOPROL XL50 MG PO (19:49)
[2019-06-04 21:50] VITALS: BP 133/68
== END 2019-06-04 21:40 | disposition home or self-care (01) ==
LOC: D.ER 18:38
PROVIDERS: Emergency Medicine
DX: I10 Essential (primary) hypertension (principal); R51 Headache; J45.909 Unspecified asthma, uncomplicated; K21.9 Gastro-esophageal reflux disease without esophagitis; G62.9 Polyneuropathy, unspecified; Z72.0 Tobacco use

== ENCOUNTER 2019-08-15 07:55 | Emergency (ER) | payer OTHER ==
[~2019-08-15] VITALS: Ht 152.4 cm; Wt 104.1 kg
[~2019-08-15 07:55] MED LIST changes: +BAYER CHEWABLE81 MG PO; +BUSPAR5 MG PO; +DOXEPIN HCL10 MG PO; +ELAVIL25 MG PO; +LAMICTAL25 MG PO; +LIPITOR80 MG PO; +PROTONIX40 MG PO; +TOPROL XL50 MG PO
[2019-08-15 08:02] VITALS: Ht 152.4 cm; Wt 104.1 kg
[2019-08-15] MEDS ORDERED: IBUPROFEN800 MG PO (08:43)
[2019-08-15] MEDS ORDERED: ACETAMINOPHEN500 M1 PO (08:43)
[2019-08-15] MEDS ORDERED: CYCLOBENZAPRINE10 MG PO (08:43)
[2019-08-15 08:54] VITALS: BP 123/74
== END 2019-08-15 08:54 | disposition home or self-care (01) ==
LOC: D.ER 07:55
DX: M25.572 Pain in left ankle and joints of left foot (principal); M25.571 Pain in right ankle and joints of right foot; M79.18 Myalgia, other site; M79.605 Pain in left leg; M79.604 Pain in right leg; W19.XXXA Unspecified fall, initial encounter; Y93.9 Activity, unspecified; Y92.9 Unspecified place or not applicable; I10 Essential (primary) hypertension; J45.909 Unspecified asthma, uncomplicated; K21.9 Gastro-esophageal reflux disease without esophagitis; G62.9 Polyneuropathy, unspecified

== ENCOUNTER 2019-09-01 08:00 | Outpatient (CLI) | payer OTHER ==
[2019-08-15 08:02] VITALS: BMI 44.8
[~2019-09-01 08:00] MED LIST changes: +ACETAMINOPHEN500 M1 PO; +CYCLOBENZAPRINE10 MG PO; +IBUPROFEN800 MG PO
== END 2019-09-01 08:01 | disposition home or self-care (01) ==
LOC: D.MRI 08:00
PROVIDERS: ATTEND Clinical Nurse Specialist Family Health
DX: M79.631 Pain in right forearm (principal)

== ENCOUNTER 2019-09-24 22:04 | Emergency (ER) | payer OTHER ==
[~2019-09-24] VITALS: Ht 152.4 cm; Wt 104.5 kg
[2019-09-24 22:22] VITALS: Ht 152.4 cm; Wt 104.5 kg
[2019-09-25] MEDS ORDERED: HYDROCODON-ACE1 EAC2 PO (00:03)
[2019-09-25] MEDS ORDERED: CYCLOBENZAPRINE10 MG PO (00:06)
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
[2019-09-25 00:30] VITALS: BP 130/88
== END 2019-09-25 00:45 | disposition home or self-care (01) ==
LOC: D.ER 22:04
DX: S16.1XXA Strain of muscle, fascia and tendon at neck level, initial encounter (principal); S00.03XA Contusion of scalp, initial encounter; S00.83XA Contusion of other part of head, initial encounter; S10.93XA Contusion of unspecified part of neck, initial encounter; Y00.XXXA Assault by blunt object, initial encounter; Y93.9 Activity, unspecified; Y92.9 Unspecified place or not applicable; I10 Essential (primary) hypertension; G62.9 Polyneuropathy, unspecified; J45.909 Unspecified asthma, uncomplicated; Z72.0 Tobacco use

== ENCOUNTER → 2019-11-01 09:35 | Outpatient (CLI) | payer OTHER ==
[2019-09-24 22:22] VITALS: BMI 45.0
[~2019-11-01 09:35] MED LIST changes: +HYDROCODON-ACE1 EAC2 PO
== END | disposition home or self-care (01) ==
LOC: D.HCCARDIO 09:35
PROVIDERS: ATTEND Internal Medicine Cardiovascular Disease
DX: I25.10 Atherosclerotic heart disease of native coronary artery without angina pectoris (principal)

== ENCOUNTER 2019-11-15 07:13 | Day surgery (SDC) | payer OTHER ==
[~2019-11-15] VITALS: Ht 154.9 cm; Wt 103.6 kg
--- NOTE | ~2019-11-15 | HEMODYNAMI ---
PATIENT:BEBO CHRISTENSEN MEDICAL RECORD: [id number] : 79 LOCATION:[facility] ADMISSION DATE: 11/15/19 Generatedon:11/15/201910:09 Patient name: BEBO CHRISTENSEN Patient #: [id number] SSN: [id number] : 1975 Date of study: 11/15/2019 Page: Of Hemodynamic Procedure Report Patient Data Patient Demographics Procedure consent was obtained First Name: BEBO Gender: Female Last Name: AMPARO : 1975 Middle Initial: M Age: 43 year(s) Patient #: [id number] Race: Black SSN: [id number] Additional ID: [id number] Contact details [address]: [address] [place] [address] State: [place] City: [place] Zip code: [address] Past Medical History Allergies Allergen Reaction Date Comments Reported Other allergy 11/15/2019 EFFEXOR, GEODON, LATEX, ROBAXIN, TRAMADOL Admission Admission Data Admission Date: 11/15/2019 Admission Time: 7:13 Arrival Date: 11/15/2019 Arrival Time: 0:00 Admit Source: Other Insurance Payor: Private health insurance [facility] #: [id number] Height (in.): 60.63 BSA: 1.99 (m2) Height (cm.): 154 BMI: 43.85 (kg/m2) Weight (lbs.): 229.28 Weight (kg.): 104 Procedure Procedure Types Cath Procedure Diagnostic Procedure C [facility] w/Coronaries Sedation Charges Moderate Sedation up to 30 minutes PCI Procedure Coronary Stent Coronary Stent Initial Hemochron ACT Test Procedure Description Procedure Date Procedure Date: 11/15/2019 Procedure Start Time: 9:37 Procedure End Time: 10:06 Procedure Staff Name Function Willie Flores MD Performing Physician Chrystal Butler RT Monitor Kelly Tinajero RT Scrub Jose Cisneros RN Nurse Procedure Data Cath Procedure Fluoroscopy Diagnostic fluoroscopy Total fluoroscopy Time: 4 time: 4 min min Diagnostic fluoroscopy Total fluoroscopy dose: 754 dose: 754 mGy mGy Contrast Material Contrast Material Type Amount (ml) Isovue 300 109 Entry Location Entry Primary Successful Side Size Upsize Upsize Entry Closure Succes sful Closure Location (Fr) 1 (Fr) 2 (Fr) Remarks Device Remarks Femoral Right 5 Fr 6 Fr Exoseal artery Short Estimated blood loss: 5 ml Diagnostic catheters Device Type Used For End Catheter Placement MULTIPACK JL 4.0 5Fr Left Coronary catheter Angiography MULTIPACK 3DRC 5Fr Right Coronary catheter Angiography MULTIPACK Pigtail 5 Fr LV Angiography catheter Procedure Complications No complications Procedure Medications Medication Administration Route Dosage 0.9% NaCl I.V. 100 ml/hr Oxygen etCO2 Nasal cannula 2 l/min Heparin Flush Bag added to field 2 bags (1000units/500ml NS) Lidocaine 2% added to field 20 Versed I.V. 2 mg Fentanyl I.V. 100 mcg Versed I.V. 1 mg Fentanyl I.V. 50 mcg Versed I.V. 1 mg Fentanyl I.V. 50 mcg Nitroglycerin IC/IA I.C. 100 mcg Heparin Bolus I.V. 25459 units Fentanyl I.V. 50 mcg Hemodynamics Rest BSA: 1.99 (m2) O2 Consumption: Estimated: 201.03 (ml/min) O2 Consumption indexed : Estimated:101.02 (ml/min/m) Heart Rate: 70 (bpm) Pressure Samples Time Site Value (mmHg) Purpose Heart Use Rate(bpm) 9:48 LV 136/4,18 Snapshot 79 9:48 AO 137/71(100) Pullback 81 9:48 LV 139/7,19 Pullback 81 Gradients Valve Time Site 1 Site 2 Mean SEP/DFP Peak To Heart Use (mmHg) (sec/min) Peak Rate (mmHg) (bpm) Aortic 9:48 LV AO 6 23 2 81 139/7,19 137/71(100) Calculations Valve P-P Mean Valve Index Valve Source Name Gradient Area Flow (cm2) Aortic 2 6 2 6 Snapshots Pre Cath Intra NCS Post Cath Vital Signs Time Heart Resp SPO2 etCO2 NIBP (mmHg) Rhythm Pain Sedation Rate (ipm) (%) (mmHg) Status Level (bpm) 9:05:55 68 17 100 28.4 139/80(100) NSR 0 (11) 10(A) , No pain 9:10:23 70 22 100 29.8 133/76(102) NSR 0 (11) 10(A) , No pain 9:14:46 74 19 99 29.1 132/82(100) NSR 0 (11) 10(A) , No pain 9:19:08 70 17 98 26.9 136/83(98) NSR 0 (11) 10(A) , No pain 9:23:32 75 18 100 29.8 134/76(100) NSR 0 (11) 10(A) , No pain 9:27:56 73 18 100 29.1 130/80(100) NSR 0 (11) 10(A) , No pain 9:32:21 87 20 99 26.9 117/73(101) NSR 0 (11) 10(A) , No pain 9:37:48 81 17 100 27.6 149/89(101) NSR 0 (11) 10(A) , No pain 9:42:19 77 17 100 36.5 155/83(117) NSR 0 (11) 9(A) , No pain 9:46:47 78 18 98 38.1 143/77(105) NSR 0 (11) 9(A) , No pain 9:51:13 81 17 97 41 131/78(98) NSR 0 (11) 9(A) , No pain 9:55:35 84 32 94 32.8 131/79(90) NSR 0 (11) 9(A) , No pain 10:00:02 84 18 97 38.8 118/68(102) NSR 0 (11) 10(A) , No pain 10:04:20 92 18 100 33.6 135/79(110) NSR 0 (11) 10(A) , No pain Medications Time Medication Route Dose Verified Delivered Reason Note s Effectiveness by by 9:03:52 0.9% NaCl I.V. 100 Jose Jose Per physician ml/hr Blayne Cisneros RN RN 9:04:02 Oxygen etCO2 2 Jose Jose for low 02 sats Nasal l/min Blayne Cisneros cannula RN RN 9:04:14 Heparin Flush added 2 bags Jose Jose used for Bag to Blayne Cisneros procedure (1000units/500ml field OLIVEIRA RN NS) 9:04:25 Lidocaine 2% added 20ml Jose Jose for local to vial Blayne Cisneros anesthetic field OLIVEIRA RN 9:32:58 Versed I.V. 2 mg Jose Jose for sedation Blayne Cisneros RN RN 9:33:08 Fentanyl I.V. 100 Jose Jose for sedation mcg Blayne Cisneros RN RN 9:36:57 Versed I.V. 1 mg Jose Jose for sedation Blayne Cisneros RN RN 9:37:04 Fentanyl I.V. 50 mcg Jose Jose for sedation Blayne Cisneros RN RN 9:39:44 Versed I.V. 1 mg Jose Jose for sedation Blayne Cisneros RN RN 9:53:23 Fentanyl I.V. 50 mcg Jose Jose for sedation Blayne Cisneros RN RN 9:54:44 Nitroglycerin I.C. 100 Jose Willie for IC/IA mcg Blayne pollock RN 9:55:02 Heparin Bolus I.V. 10,000 Jose Jose for units Blayne smith RN RN 10:07:44 Fentanyl I.V. 50 mcg Jose Jose for sedation Blayne Cisneros RN engraver pantograph Log Time Note 8:37:42 Informed consent obtained and on chart 8:38:00 Diagnostic Cath Status : Elective 8:38:18 Arrival Date: 11/15/2019 12:00:00 AM 8:38:19 Admit Source: Other 8:38:30 Insurance Payor : Private health insurance 8:45:32 Jose Cisneros RN sent for patient. Start room use. 8:54:46 Procedure Status Elective Heart Cath (OP). 8:54:51 Plan of Care:Hemodynamics will remain stable., Cardiac rhythm will remain stable., Comfort level will be maintained., Respiratory function will remain adequate., Patient/ family verbilizes understanding of procedure., Procedure tolerated without complication., Recovers from procedure without complications.. 8:54:55 Time tracking: Regular hours (M-F 7:00 - 5:00) 8:55:20 Patient received from Pre/Post Procedure Room to CCL 1 Alert and oriented. Tansferred to table in Supine position. 8:56:09 Warm blankets applied, and moose hugger turned on for patient comfort. 8:56:09 Correct patient and procedure confirmed by team. 8:56:10 ECG and BP/O2 sat monitors applied to patient. 8:56:23 H&P Date Dictated: 10/20/2019 Within 30 days and on chart., H&P Addendum completed by physician on day of procedure. (MUST COMPLETE FOR ALL OUTPATIENTS). 8:57:05 Patient allergic to Other allergyEFFEXOR, GEODON, LATEX, ROBAXIN, TRAMADOL 8:57:28 Patient Weight : 229.28 lbs 8:57:32 Patient Height : 60.63 inches 8:57:44 Pre-procedure instructions explained to patient. 8:57:45 Pre-op teaching completed and patient verbalized understanding. 8:57:57 Family in patients room. 8:57:59 Patient NPO since Midnight. 8:58:01 Is patient on blood thinner?Yes 8:58:07 ACC The patient was administered the following blood thiners within the last 24 hours: ACCPlavix 9:02:16 Patient diabetic? No. 9:02:19 Previous problem with sedation/anesthesia? No ? 9:02:21 Snore? No 9:02:22 Sleep apnea? No 9:02:23 Deviated septum? No 9:02:25 Opens mouth fully? Yes 9:03:52 0.9% NaCl 100 ml/hr I.V. was administered by Jose Cisneros RN; Per physician; Verbal order read back and verified. 9:04:02 Oxygen 2 l/min etCO2 Nasal cannula was administered by Jose Cisneros RN; for low 02 sats; Verbal order read back and verified. 9:04:14 Heparin Flush Bag (1000units/500ml NS) 2 bags added to field was administered by Jose Cisneros RN; used for procedure; Verbal order read back and verified. 9:04:25 Lidocaine 2% 20ml vial added to field was administered by Jose Cisneros RN; for local anesthetic; Verbal order read back and verified. 9:04:33 Vital chart was started 9:05:37 Sticks out tongue? Yes 9:05:57 Airway obstruction? Yes COPD 9:06:13 Dentures? No ? 9:06:18 Pre procedure: right dorsailis pedis pulse 2+ Normal; easily identifiable; not easily obliterated 9:06:20 Pre procedure: left dorsailis pedis pulse 2+ Normal; easily identifiable; not easily obliterated 9:06:23 Patient pain scale 0/10 ?. 9:07:01 IV patent on arrival in left forearm with 0.9% NaCl at O. 9:07:04 Lab results completed and on chart. 9:08:43 Right groin area was prepped with chlora-prep and draped in sterile fashion 9:08:45 Alarms reviewed by RDoc N. 9:08:46 Sharps counted by scrub and verified by R.N. 9:22:47 Physician arrived 9::48 --------ALL STOP TIME OUT------ 9::48 Final Timeout: patient, procedure, and site verified with staff and physician. All members of the team are in agreement. 9:22:51 Right groin site verified by team. 9:22:54 Fire Safety Assessment: A--An alcohol-based skin anteseptic being used preoperatively., C--Open oxygen or nitrous oxide is being used., D--An ESU, laser, or fiber-optic light is being used. 9:22:58 Physical assessment completed. ASA score P 2 - A patient with mild systemic disease as per Willie Flores MD. 9:23:48 Sedation plan: IV Moderate Sedation Medication:Versed, Fentanyl 9:23:53 Use device set Femoral Dx 9:23:54 ACIST Syringe (97724) opened to sterile field. 9:23:54 Bag Decanter (2002S) opened to sterile field. 9:23:55 Medline Cath Pack ([id number]) opened to sterile field. 9:23:56 ACIST Hand Control (58427) opened to sterile field. 9:23:56 ACIST Manifold (07595) opened to sterile field. 9:23:57 DIAGNOSTIC Multipack 5Fr catheter set (RB6389) opened to sterile field. 9:23:58 Tegaderm 4 x 4 (1626W) opened to sterile field. 9:23:59 SHEATH 5FR Randall (ABQ321) opened to sterile field. 9:23:59 EMERALD Guide Wire (646-247) opened to sterile field. 9:28:17 Baseline sample Acquired. 9:28:22 Rhythm: sinus rhythm 9:32:58 Versed 2 mg I.V. was administered by Jose Cisneros RN; for sedation; Verbal order read back and verified. 9:33:08 Fentanyl 100 mcg I.V. was administered by Jose Cisneros RN; for sedation; Verbal order read back and verified. 9:34:41 Procedure started. 9:34:41 Full Disclosure recording started 9:36:57 Versed 1 mg I.V. was administered by Jose Cisneros RN; for sedation; Verbal order read back and verified. 9:37:04 Fentanyl 50 mcg I.V. was administered by Jose Cisneros RN; for sedation; Verbal order read back and verified. 9:37:21 Local anesthetic to right femoral artery with Lidocaine 2% by Willie Flores MD.INITIAL ACCESS ONLY 9:37:31 A 5 Fr sheath was inserted into the Right Femoral artery 9:39:44 Versed 1 mg I.V. was administered by Jose Cisneros RN; for sedation; Verbal order read back and verified. 9:43:01 A MULTIPACK JL 4.0 5Fr catheter was advanced over the wire and used for Left Coronary Angiography. 9:43:12 LCA angiography performed. 9:43:16 Injector settings: Ml/sec: 3, Volume: 6, 9:43:34 Catheter removed. 9:43:43 A MULTIPACK 3DRC 5Fr catheter was advanced over the wire and used for Right Coronary Angiography. 9:44:37 RCA angiography performed. 9:44:40 Injector settings: Ml/sec: 3, Volume: 6, 9:48:27 Catheter removed. 9:48:33 A MULTIPACK Pigtail 5 Fr catheter was advanced over the wire and used for LV Angiography. 9:48:35 LV hemodynamics recorded. 9:48:36 LV gram done using HAMEED 9:48:38 Injector settings: Ml/sec: 5, Volume: 15, 9:48:47 EF : 45 % 9:49:41 Catheter removed. 9:50:00 SHEATH 6FR Randall (FAV440) opened to sterile field. 9:50:00 INFLATOR Merit BasixCompak (VW1973) opened to sterile field. 9:50:02 BMW 300cm [place] 2 J wire ([id number]) opened to sterile field. 9:50:19 TUBING High Pressure Extension Tubing (Mark) ([id number]) opened to sterile field. 9:52:27 GUIDE 6FR XBLAD 3.5 catheter ([id number]) opened to sterile field. 9:52:58 Proceeding to intervention. 9:53:05 ACC Pre-intervention YAIR Flow is 3. 9:53:11 Pre PCI Site: [place] pLAD has 80% stenosis. 9:53:22 Sheath upsized to a 6 Fr Short. 9:53:23 Fentanyl 50 mcg I.V. was administered by Jose Cisneros RN; for sedation; Verbal order read back and verified. 9:54:26 6 Fr xblad 3.5 guide catheter was inserted over the wire 9:54:31 bmw wire advanced. 9:54:44 Nitroglycerin IC/IA 100 mcg I.C. was administered by Willie Flores MD; for vasodilation; Verbal order read back and verified. 9:55:02 Heparin Bolus 10,000 units I.V. was administered by Jose Cisneros RN; for anticoagulation; Verbal order read back and verified. 9:57:41 Wire advanced across lesion. 10:00:40 Place stent Inflation Number: 1 A SHEYLA OTW 3.0 x 22 stent ([id number]) was prepped and advanced across the Prox LAD 80. The stent was deployed at 12 RENE for 0:10 (min:sec) 0. 10:01:14 Stent catheter was removed intact over wire. 10:01:14 Wire removed. 10:01:15 Guide catheter removed. 10:01:23 EXOSEAL 6Fr (EX600) opened to sterile field. 10:01:34 Sheath removed intact; hemostasis achieved with Exoseal to the Right Femoral artery. 10:01:35 Procedure ended.(Physican Out) 10:01:46 Fluoroscopy time 04.00 minutes. 10:01:52 Flurop Dose total: 754 10:01:52 Fluoroscopy dose: 754 mGy 10:02:01 Dose Area Product 86330 mGy/cm. 10:04:12 Contrast amount:Isovue 300 109ml. 10:04:15 Maximum allowable dose exceeded? No. 10:04:16 Sharps counted by scrub and verified by R.N. 10:04:19 Insertion/operative site no bleeding no hematoma. 10:04:23 Post-op/insertion site Right Femoral artery dressed using a 4 x 4 and Tegaderm. 10:04:24 Post Procedure Pulses reassessed and unchanged 10:04:27 Post procedure rhythm: unchanged. 10:04:29 Estimated blood loss: 5 ml 10:04:31 Post procedure instruction explained to patient.Patient verbalizes understanding. 10:04:31 Patient needs reinforcement of post procedure teaching. 10:05:37 Procedure type changed to Cath procedure, Diagnostic procedure, LHC, C w/Coronaries, Sedation Charges, Moderate Sedation up to 30 minutes, PCI procedure, Coronary Stent, Coronary Stent Initial, Hemochron ACT Test 10:05:38 Procedure and supply charges have been captured, reviewed, submitted and are correct. 10:05:43 Procedure Complication : No complications 10:05:45 Vital chart was stopped 10:05:53 [facility] Findings: MVD- PCI performed (see procedure note) 10:05:55 Operative report dictated upon procedure completion. 10:05:56 See physician's report for complete and final results. 10:06:02 Report given to Pre/Post Procedure Room. 10:06:05 Patient transfered to Pre/Post Procedure Room with Stretcher. 10:06:08 Procedure ended. 10:06:08 Full Disclosure recording stopped 10:06:15 ACC-PCI Only Patient was given prescriptions, or instructed by Willie Flores MD to start/continue the following medications upon discharge: Plavix 10:06:17 End room use (Document Last) 10:06:39 End room use (Document Last) 10:07:04 End room use (Document Last) 10:07:29 ACT drawn and resulted at (high) out of range seconds. (normal therapeutic range 180-240 seconds). 10:07:44 Fentanyl 50 mcg I.V. was administered by Jose Cisneros RN; for sedation; Verbal order read back and verified. Intervention Summary Intervention Notes Time ActionType Lesion and Equipment Action# Pressure Duration Attributes Used 10:00:[address] Place stent Prox LAD SHEYLA OTW 3.0 1 12 00:10 x 22 stent ([id number]) Device Usage Item Name Manufacture Quantity Catalog Hospital Part Current Mini mal Lot# / Number Charge Number Stock Stock Serial# Code ACIST Syringe Acist 1 44530 060350 916158 167055 20 (50353) Medical Ch[employer] Inc Bag Decanter Microtek 1 972581 83228 326525 5 () Medical Inc. Medline Cath Medline 1 [id number] 091973 20063 538318 5 Pack ([id number]) ACIST Hand Acist 1 94060 061913 799543 209019 5 Control Medical (90671) Systems Inc ACIST Acist 1 79956 997686 094139 145135 5 Manifold Medical (65393) Systems Inc DIAGNOSTIC Cardinal 1 [id number] 602636 65228 426920 30 Multipack 5Fr Health catheter set (TU3356) Tegaderm 4 x 3M 1 1626W 326921 989565 781291 5 4 (1626W) SHEATH 5FR Terumo 1 EFW543 364346 916256 400385 5 Randall (IYC897) EMERALD Guide Cardinal 1 502-455 046523 078553 263633 5 Wire Health (502-455) MULTIPACK JL Cardinal 1 517152 5 4.0 5Fr Health catheter MULTIPACK Cardinal 1 486057 5 3DRC 5Fr Health catheter MULTIPACK Cardinal 1 293565 5 Pigtail 5 Fr Health catheter SHEATH 6FR Terumo 1 SNR271 314888 016412 682583 40 Randall (IFQ586) INFLATOR Merit 1 HN2782 537692 238690 475759 15 [facility] Medical BasixCompak (AX7535) BMW 300cm Mo 1 [id number] 981440 362786 834594 5 [place] 2 J Vascular wire (1420216A) TUBING High Merit 1 [id number] 786684 54493 531996 10 Pressure Medical Extension Tubing (Flores) (AG6038D) GUIDE 6FR Cardinal 1 [id number] 030666 264582 527804 10 XBLAD 3.5 Health catheter (22761308) SHEYLA OTW 3.0 Medtronic 1 [id number] 155853 1692890 147382 5 [id number] x 22 stent ([id number]) EXOSEAL 6Fr Cardinal 1 EX600 908396 125823 520075 10 (EX600) Health Signature Audit Check Stage Time Signature Unsigned Intra-Procedure 11/15/2019 Chrystal Butler 10:06:39 AM RT(R) Intra-Procedure 11/15/2019 Jose 10:07:04 AM Blayne OLIVEIRA Intra-Procedure 11/15/2019 Willie Flores MD 10:09:28 AM [place] [address] [place] [address]
[2019-11-15] MEDS ORDERED: PLAVIX75 MG PO (08:09)
[2019-11-15] MEDS ORDERED: CYCLOBENZAPRINE10 MG PO (08:09)
[2019-11-15 08:17] VITALS: BP 131/63; Ht 154.9 cm; Wt 103.6 kg
[2019-11-15 08:34] LABS: BASOPHILS 0.4 % (0-2); HEMATOCRIT 46.2 % (36.0-48.0); HEMOGLOBIN 15.3 g/dL (12-16); IMMATURE GRANULOCYTES 0.3 % (0-5); LYMPHOCYTES 20.4 % (15-50); MCH 29.9 pg (26.0-34.0); MCHC 33.1 g/dL (31.0-37.0); MCV 90.2 fL (80.0-100.0); MEAN PLATELET VOLUME 10.3 fL (7.4-10.4); MONOCYTES 5.9 % (2-11); PLATELET COUNT 249 10x3/uL (130-400); RBC 5.12 10x6/uL (4.00-5.40); RDW 13.4 % (11.5-14.5)
[2019-11-15 09:25] LABS: ANION GAP 11.9 mmol/L (8-16); CALCIUM 8.6 mg/dL (8.5-10.1); CARBON DIOXIDE 24.9 mmol/L (21.0-32.0); CHOL - HDL RATIO 4.6 ratio (2.3-4.1); CREATININE - SERUM 0.9 mg/dL (0.6-1.3); LDL-HDL RATIO 2.9 ratio (1.5-3.5); POTASSIUM - SERUM 3.8 mmol/L (3.5-5.1)
--- NOTE | 2019-11-15 10:20 | NUR ---
PT REC'D TO ROOM 8 VIA STRETCHER FROM TRAVELING PLANT OPERATOR. MONITORS ESTAB, MOTHER AT BS. SEE CUT OUT STITCHER, ALARMS ON AND C/L IN REACH.
--- NOTE | 2019-11-15 10:35 | NUR ---
R GROIN SITE SOFT, NO S/S BLEEDING OR HEMATOMA. PULSES PALP. PT REPORTS PAIN AT INSERTION SITE - DR. LUI NOTIFIED AND NEW ORDER REC'D. MOTHER AT BS. VSS. ALARMS ON AND C/L IN REACH.
--- NOTE | 2019-11-15 10:59 | NUR ---
ADMIN PO NORCO PER MD ORDER, NO DIFFICULTY SWALLOWING. R GROIN SITE SOFT, NO S/S BLEEDING OR HEMATOMA. PULSES PALP, VSS.
--- NOTE | 2019-11-15 11:00 | NUR ---
DR. LUI IN TO SEE PT, UPDATE GIVEN AND QUESTIONS ANSWERED.
--- NOTE | 2019-11-15 11:15 | NUR ---
R GROIN SITE SOFT, NO S/S BLEEDING OR HEMATOMA. PULSES PALP. PT RESTING QUIETLY, NO SIGNS OF DISTRESS. ALARMS ON AND C/L IN REACH.
--- NOTE | 2019-11-15 11:30 | NUR ---
R GROIN SITE SOFT, NO S/S BLEEDING OR HEMATOMA. PULSES PALP. VSS. PT RESTING QUIETLY, ALARMS ON AND C/L IN REACH. MOTHER AT BS.
--- NOTE | 2019-11-15 11:45 | NUR ---
PT RESTING QUIETLY, REPORTS ADEQUATE PAIN RELIEF. R GROIN SITE SOFT, C/D/I. VSS.
--- NOTE | 2019-11-15 12:00 | NUR ---
R GROIN SITE SOFT, C/D/I. PT C/O BACK PAIN. LOG ROLLED TO LEFT SIDE, REPORTS RELIEF. VSS. MOTHER AT BS. C/L IN REACH.
--- NOTE | 2019-11-15 12:25 | NUR ---
PT REPOSITIONED UP IN BED FOR COMFORT. R GROIN SITE SOFT, NO S/S BLEEDING OR HEMATOMA. PULSES PALP. VSS. C/L IN REACH.
--- NOTE | 2019-11-15 13:03 | NUR ---
R GROIN SITE SOFT, NO S/S BLEEDING OR HEMATOMA. VSS. HOB ELEVATED. SANDWICH TRAY AND COLA PROVIDED. MOTHER AT ASSISTING.
--- NOTE | 2019-11-15 13:30 | NUR ---
ALL DISCHARGE INSTRUCTIONS REVIEWED WITH PT AND MOTHER, INCLUDING RESTRICTIONS, MEDS AND F/U APPT. BOTH VERBALIZE UNDERSTANDING.
--- NOTE | 2019-11-15 13:40 | NUR ---
R GROIN SITE SOFT, NO S/S BLEEDING OR HEMATOMA. PIV D/C'D INTACT, DSG APPLIED. PT UP TO GET DRESSED WITH MOTHER ASSISTING, THEN TO BR INDEPENDENTLY.
--- NOTE | 2019-11-15 13:45 | NUR ---
PT D/C'D TO PRIVATE VEHICLE, HAS ALL PAPERWORK AND BELONGINGS.
== END 2019-11-15 13:45 | disposition home or self-care (01) ==
LOC: D.CATH 07:13
PROVIDERS: ATTEND Internal Medicine Cardiovascular Disease
DX: I25.119 Atherosclerotic heart disease of native coronary artery with unspecified angina pectoris (principal); R94.39 Abnormal result of other cardiovascular function study; I07.9 Rheumatic tricuspid valve disease, unspecified

== ENCOUNTER 2019-12-30 23:36 | Emergency (ER) | payer OTHER ==
[~2019-12-30] VITALS: Ht 154.9 cm; Wt 100.7 kg
[2019-12-30 23:52] VITALS: Ht 154.9 cm; Wt 100.7 kg
[2019-12-31 00:19] LABS: HEMATOCRIT 49.3 % (36.0-48.0); HEMOGLOBIN 16.7 g/dL (12-16); MCH 29.7 pg (26.0-34.0); MCHC 33.9 g/dL (31.0-37.0); MCV 87.7 fL (80.0-100.0); NEUTROPHILS 76.3 % (40-80); PLATELET COUNT 267 10x3/uL (130-400); RBC 5.62 10x6/uL (4.00-5.40); WBC 12.2 10x3/uL (4.8-10.8)
[2019-12-31 00:30] LABS: CALC OSMOLALITY 274 mosm/kg (275-300); CALCIUM 8.9 mg/dL (8.5-10.1); CARBON DIOXIDE 24.3 mmol/L (21.0-32.0); CHLORIDE - SERUM 100 mmol/L (98-107); CREATININE - SERUM 0.9 mg/dL (0.6-1.3); GLUCOSE 113 mg/dL (74-106); POTASSIUM - SERUM 3.5 mmol/L (3.5-5.1); SODIUM 137 mmol/L (136-145); UREA NITROGEN 12 mg/dL (7-18); eGFR NON AFRICAN AMERICAN 73 mL/min (90-120)
[2019-12-31 00:37] LABS: APTT 38.8 SECONDS (22.8-39.4); INR 1.08 (0.85-1.17); PROTIME 13.9 SECONDS (11.6-15.0)
[2019-12-31 00:47] LABS: ALBUMIN 3.6 g/dL (3.4-5.0); ALKALINE PHOSPHATASE 66 U/L (30-120); ALT (SGPT) 23 U/L (10-68); BILIRUBIN - TOTAL 1.01 mg/dL (0.2-1.3); CREATINE KINASE 65 UL (21-215); PROTEIN - SERUM 8.3 g/dL (6.4-8.2)
[2019-12-31 00:48] LABS: TROPONIN-I < 0.017 ng/mL (0.000-0.060)
[2019-12-31 02:31] LABS: BILIRUBIN NEGATIVE (NEGATIVE); KETONE NEGATIVE (NEGATIVE); NITRITE NEGATIVE (NEGATIVE); UROBILINOGEN NORMAL mg/dL (< 2)
[2019-12-31 02:35] LABS: UDS - AMPHET NEGATIVE QUAL (NEGATIVE); UDS - BARB NEGATIVE QUAL (NEGATIVE); UDS - BENZO NEGATIVE QUAL (NEGATIVE); UDS - COCAINE NEGATIVE QUAL (NEGATIVE); UDS - OPIATE NEGATIVE QUAL (NEGATIVE); UDS - PCP NEGATIVE QUAL (NEGATIVE); UDS - THC NEGATIVE QUAL (NEGATIVE)
[2019-12-31 03:23] VITALS: BP 114/64
== END 2019-12-31 03:23 | disposition home or self-care (01) ==
LOC: D.ER 23:36
PROVIDERS: Family Medicine
DX: R51.9 Headache, unspecified (principal); I25.10 Atherosclerotic heart disease of native coronary artery without angina pectoris; I10 Essential (primary) hypertension; G62.9 Polyneuropathy, unspecified; J45.909 Unspecified asthma, uncomplicated; K21.9 Gastro-esophageal reflux disease without esophagitis; Z72.0 Tobacco use

== ENCOUNTER 2020-07-03 17:53 | Emergency (ER) | payer OTHER ==
[~2020-07-03] VITALS: Ht 152.4 cm; Wt 100.0 kg
[~2020-07-03 17:53] MED LIST changes: +TESSALON PERLE100 MG PO; +ZPAK PO
[2020-07-03 18:06] VITALS: BP 139/85; Ht 152.4 cm; Wt 100.0 kg
[2020-07-03] MEDS ORDERED: CRESTOR40 MG PO (18:10)
[2020-07-03] MEDS ORDERED: HYDROCHLOROTH12.5 M1 PO (18:10)
[2020-07-03] MEDS ORDERED: CIMETIDINE200 MG PO (18:10)
[2020-07-03] MEDS ORDERED: BENADRYL25 MG PO (20:04)
[2020-07-03] MEDS ORDERED: GYNE-LOTRIMIN-745 GM VG (20:04)
[2020-07-03] MEDS ORDERED: FLAGYL500 MG PO (20:04)
== END 2020-07-03 20:44 | disposition home or self-care (01) ==
LOC: D.ER 17:53
DX: N76.0 Acute vaginitis (principal); I10 Essential (primary) hypertension; Z72.0 Tobacco use

== ENCOUNTER → 2020-08-07 19:38 | Outpatient (CLI) | payer OTHER ==
[2020-07-03 18:06] VITALS: BMI 43.0
[~2020-08-07 19:38] MED LIST changes: +BENADRYL25 MG PO; +CIMETIDINE200 MG PO; +CRESTOR40 MG PO; +GYNE-LOTRIMIN-745 GM VG; +HYDROCHLOROTH12.5 M1 PO
[2020-08-07 20:19] LABS: CHOL - HDL RATIO 5.3 ratio (2.3-4.1); LDL-HDL RATIO 3.1 ratio (1.5-3.5)
== END | disposition home or self-care (01) ==
LOC: D.LABREF 19:38
PROVIDERS: ATTEND Nurse Practitioner
DX: I25.10 Atherosclerotic heart disease of native coronary artery without angina pectoris (principal)

== ENCOUNTER 2020-08-11 17:45 | Emergency (ER) | payer OTHER ==
[~2020-08-11] VITALS: Ht 152.4 cm; Wt 96.4 kg
[2020-08-11 17:52] VITALS: Ht 152.4 cm; Wt 96.4 kg
[2020-08-11] MEDS ORDERED: NAPROSYN500 MG PO (18:55)
[2020-08-11 19:15] VITALS: BP 126/58
== END 2020-08-11 19:15 | disposition home or self-care (01) ==
LOC: D.ER 17:45
DX: M25.571 Pain in right ankle and joints of right foot (principal); I10 Essential (primary) hypertension; Z72.0 Tobacco use

== ENCOUNTER 2020-08-29 21:23 | Emergency (ER) | payer OTHER ==
[~2020-08-29] VITALS: Ht 152.4 cm; Wt 96.4 kg
[~2020-08-29 21:23] MED LIST changes: +NAPROSYN500 MG PO
[2020-08-29 21:34] VITALS: Ht 152.4 cm; Wt 96.4 kg
[2020-08-29 21:49] LABS: BASOPHILS 0.2 % (0-2); EOSINOPHILS 1.6 % (0-7); HEMATOCRIT 44.1 % (36.0-48.0); HEMOGLOBIN 14.7 g/dL (12-16); LYMPHOCYTES 32.3 % (15-50); MCH 29.5 pg (26.0-34.0); MCHC 33.4 g/dL (31.0-37.0); MCV 88.2 fL (80.0-100.0); MONOCYTES 8.1 % (2-11); NEUTROPHILS 57.8 % (40-80); PLATELET COUNT 249 10x3/uL (130-400); RBC 4.99 10x6/uL (4.00-5.40); WBC 7.9 10x3/uL (4.8-10.8)
[2020-08-29 22:20] LABS: APTT 29.3 SECONDS (22.8-39.4); INR 1.04 (0.85-1.17); PROTIME 12.6 SECONDS (11.6-15.0)
[2020-08-29 22:29] LABS: CALC OSMOLALITY 280 mosm/kg (275-300); CALCIUM 8.6 mg/dL (8.5-10.1); CARBON DIOXIDE 23.7 mmol/L (21.0-32.0); CHLORIDE - SERUM 105 mmol/L (98-107); CREATININE - SERUM 0.9 mg/dL (0.6-1.3); GLUCOSE 105 mg/dL (74-106); POTASSIUM - SERUM 3.5 mmol/L (3.5-5.1); SODIUM 140 mmol/L (136-145); UREA NITROGEN 18 mg/dL (7-18); eGFR NON AFRICAN AMERICAN 73 mL/min (90-120)
[2020-08-29 22:43] LABS: ALBUMIN 3.6 g/dL (3.4-5.0); ALKALINE PHOSPHATASE 59 U/L (30-120); ALT (SGPT) 26 U/L (10-68); BILIRUBIN - TOTAL 0.53 mg/dL (0.2-1.3); CKMB 0.3 U/L (0.0-3.6); CREATINE KINASE 100 UL (21-215); MAGNESIUM - SERUM 2.2 mg/dL (1.8-2.4); PROTEIN - SERUM 7.9 g/dL (6.4-8.2); TROPONIN-I < 0.017 ng/mL (0.000-0.060)
[2020-08-29 23:32] VITALS: BP 136/84
== END 2020-08-29 23:32 | disposition home or self-care (01) ==
LOC: D.ER 21:23
PROVIDERS: Family Medicine
DX: R07.9 Chest pain, unspecified (principal); I25.10 Atherosclerotic heart disease of native coronary artery without angina pectoris; J44.9 Chronic obstructive pulmonary disease, unspecified; K21.9 Gastro-esophageal reflux disease without esophagitis; Z72.0 Tobacco use

== ENCOUNTER → 2020-09-10 09:21 | Outpatient (CLI) | payer OTHER ==
[2020-08-29 21:34] VITALS: BMI 41.4
--- NOTE | ~2020-09-10 | ST ---
PATIENT:BEBO CHRISTENSEN MEDICAL RECORD: [id number] SEX: F LOCATION:[facility] ORDER #: ADMISSION DATE: 09/10/20 AGE OF PATIENT: 44 REFERRING PHYSICIAN: INTERPRETING PHYSICIAN: SHARON TERRAZAS MD DATE OF SERVICE: 09/10/2020 NUCLEAR STRESS TEST FINDINGS: Gated is normal with normal wall motion. Normal wall thickening. Calculated EF 60%. SPECT IMAGIN. Short axis view shows good uptake along the anterior wall, lateral wall and inferior wall. 2. Horizontal axis; horizontal axis confirms good uptake along the anterior wall and inferior wall. 3. Vertical axis; vertical axis confirms good uptake along the lateral wall and septum. FINAL IMPRESSION: 1. Normal gated, normal wall motion, ejection fraction 60%. 3. Normal SPECT imaging. FINAL RECOMMENDATIONS: Scan is felt to have low risk for any myocardial ischemia or previous myocardial infarction. LV function remains normal. Continue medical management and risk factor modifications recommended. TRANSINT:[id number] Voice Confirmation ID: [id number] DOCUMENT ID: [id number] SHARON TERRAZAS MD CC: [id number] DICTATION DATE: 09/10/20 165 HR OPERATIONS ADVISOR: 09/11/20 0957 DEP CLI 09/10/20 [place] [id number]
== END | disposition home or self-care (01) ==
LOC: D.HCCARDIO 09:21
PROVIDERS: ATTEND Internal Medicine Interventional Cardiology
DX: I25.10 Atherosclerotic heart disease of native coronary artery without angina pectoris (principal)